=== PATIENT | female | born 1960 | race Caucasian/White ===

== ENCOUNTER → 2020-11-20 | Outpatient (CLI) | payer SELFPAY ==
[2020-11-20 13:53] LABS: BACTERIA,URINE 0 /HPF (0-FEW); BILIRUBIN,URINE NEG (NEG); CLARITY,URINE CLEAR; COLOR,URINE YELLOW; GLUCOSE,URINE NEG (NEG); NITRITE,URINE NEG (NEG); RBC,URINE RARE /HPF (0-2); SQUAMOUS EPITHELIAL CELL,UR FEW /LPF; UROBILINOGEN,URINE 0.2 mg/dL (0.2 mg/dL); WBC,URINE RARE /HPF (0-4)
== END ==
LOC: LAB 12:41
PROVIDERS: ATTEND Family Medicine
DX: N39.0 Urinary tract infection, site not specified (principal)
CPT/HCPCS: 81001; 87086

== ENCOUNTER → 2021-07-06 | Outpatient (CLI) | payer OTHER ==
--- NOTE | 2021-07-06 09:22 | RAD ---
Examination: CT of the abdomen pelvis with contrast HISTORY: History of hematuria, recurring urinary tract infection COMPARISON: None TECHNIQUE: Axial CT images of the abdomen pelvis performed without contrast. Coronal and sagittal ref ormats are performed Exposure: One or more of the following individualized dose reduction techniques were utilized for thi s examination: 1. Automated exposure control 2. Adjustment of the mA and/or kV according to patient size 3. Use of iterative reconstruction technique FINDINGS: The bibasilar lungs are clear. No evidence of free air identified in the abdomen. The visualized nonc ontrasted liver, spleen, adrenals grossly appears unremarkable.The gallbladder is mildly distended. T he stomach is mildly distended. The visualized pancreas grossly appears unremarkable. The small bowel is nondilated. Feces and gas noted in the colon. Appendix is normal. No evidence of intrarenal collecting system calculi or hydronephrosis. The urinary bladder is mildly distended. Moderate degenerative changes lumbar spine most at L5-S1.. IMPRESSION: No evidence of intrarenal collecting system calculi or hydronephrosis. Electronically signed by: Armando Rogers MD (07/06/2021 9:20 AM) [id number]
== END ==
LOC: CT 08:31
PROVIDERS: ATTEND Urology
DX: N30.21 Other chronic cystitis with hematuria (principal); N39.3 Stress incontinence (female) (male); K82.8 Other specified diseases of gallbladder; M47.817 Spondylosis without myelopathy or radiculopathy, lumbosacral region
CPT/HCPCS: 74176